=== PATIENT | female | born 1995 | race Caucasian/White ===

== ENCOUNTER 2018-03-13 18:54 | Emergency (ER) | payer MEDICAID, SELFPAY ==
[2018-03-13 18:58] VITALS: BP 121/95; PULSE 129; RESP 20; TEMP 36.7; O2SAT 99
--- NOTE | 2018-03-13 19:05 | ED.GENADUL ---
Disposition Clinical Impression: Abscess of buttock, right Disposition: HOME Condition: Good Instructions: Abscess (ED) Additional Instructions: Home to rest today. May use Tylenol and/or ibuprofen if needed for persistent pain. Return if you develop a fever, shaking chills, or any other concerns. Please follow-up in general surgery clinic for recheck I have referred you to their office. Our case management will work on achieving you an outpatient appointment. May use an inflatable donut to use pressure on the wound. As he discussed may perform dressing change tomorrow with a wick removed in 24-48 hours. Medical Decision Making - Medical Decision Making 23-year-old female presents with right buttock pain and swelling consistent with previous abscess. She is uncomfortable, and in pain with a heart rate of 129. Exam does reveal abscess of the right buttock. Patient consented for incision and drainage. She was anesthetized, prepped and draped in standard sterile fashion, incised with 11 blade with release of approximately 8-10 cc of purulent fluid. A subsequent wound was explored for loculations, packed with iodoform dressing and dressing placed. Patient tolerated the procedure well. She understands home care as well as return precautions. I will refer her to general surgery clinic given the recurrent nature of what is probably a pilonidal cyst. She is stable for discharge home. History of Present Illness - General Chief complaint: Cellulitis Stated complaint: UNKNOWN Time Seen by Provider: 03/13/18 18:55 Source: patient, RN notes reviewed Mode of arrival: ambulatory Limitations: no limitations - History of Present Illness Initial comments: Right buttock abscess: 23-year-old female presents with the gradual onset over 1-1/2 days time of moderate, constant pain in her right buttock towards the midline. She noticed a swollen bump consistent with previous abscess required incision and drainage. She has not had a fever or chills. The discomfort is worse when sitting on it and relieved with lack of pressure. - Related Data Nexplanon 12/01/16 Allergies Allergy/AdvReac Type Severity Reaction Status Date / Time Penicillins Allergy Mild A CHILD Unverified 03/13/18 19:02 Review of Systems Other: 6 systems reviewed, otherwise negative Past Medical History - Past Medical History Pilonidal cyst Surgical history: no surgical history - Social History Alcohol use: none Drug use: marijuana General Exam - General Limitations: no limitations General appearance: alert, in no apparent distress - Head Head exam: Present: atraumatic, normocephalic - Eye Eye exam: Present: PERRL, EOMI - Neck Neck exam: Present: normal inspection, full ROM - Respiratory Respiratory exam: Present: normal lung sounds bilaterally. Absent: respiratory distress - Cardiovascular Cardiovascular Exam: Present: normal rhythm, tachycardia - GI/Abdominal GI/Abdominal exam: Present: soft. Absent: distended, tenderness - Extremities Exam Extremities exam: Present: normal inspection - Back Exam Back exam: Present: other (Buttock: The right buttock has a 1 x 3 cm area of raised abscess it is tender to touch. It is outside of the gluteal cleft but towards the midline of the buttock. Does not track proximally.) - Neurological Exam Neurological exam: Present: alert, oriented X3 - Psychiatric Psychiatric exam: Present: normal affect, normal mood - Skin Skin exam: Present: warm, dry, intact Course Vital Signs - 24 hr 03/13/18 18:58 Temperature 36.7 C Pulse 129 H Respiratory 20 Rate Blood Pressure 121/95 Pulse Oximetry 99 Procedures - Abscess I/D Site: Other (Buttock) Side (if applicable): Right Local Anesthetic: Lidocaine 1% Amount of Anesthesia Used (mL): 2 Technique: Incised with #11 Blade Amount of Fluid: 8 (Purulent) Packing used?: Iodoform
--- NOTE | 2018-03-14 08:20 | PDOC.ERCMPRO ---
Care Management Progress Note 03/14-Dr. Arana requested assistance with a general surgery f/u in 1-2 weeks for buttock abscess. Referral faxed to [facility] this am.
--- NOTE | 2018-03-14 08:21 | CMPROGNOTE_ITS ---
Care Management Progress Note 03/14-Dr. Arana requested assistance with a general surgery f/u in 1-2 weeks for buttock abscess. Referral faxed to [facility] this am.
== END 2018-03-13 19:47 | disposition home or self-care (01) ==
PROVIDERS: Emergency Provider Emergency Medicine; PCP Internal Medicine
DX: L02.31 Cutaneous abscess of buttock (principal)
CPT/HCPCS: 10061

== ENCOUNTER 2018-08-16 17:05 | Emergency (ER) | payer MEDICAID, SELFPAY ==
[2018-08-16 17:16] VITALS: BP 140/78; PULSE 110; RESP 14; TEMP 37.1; O2SAT 97
--- NOTE | 2018-08-16 17:26 | W.ED.GENAD ---
Discharge Plan Disposition Patient Disposition: HOME Condition: Fair Discharge Details Chief Complaint: RespSymp Clinical Impression: URI (upper respiratory infection) Primary Care Provider: Nas Carvalho ED Provider: Erin Laird Home Meds and New Rx's Prescriptions: Continued nexplanon RF: 0 Discharge Instructions Instructions: Upper Respiratory Infection (ED) Additional Instructions: Encourage hydration. Tylenol and/or ibuprofen as needed for discomfort. You may try warm water and honey to help with sore throat. If you develop difficulty breathing, shortness of breath, inability to stay hydrated or other new/worsening symptoms please seek care urgently once again. Referrals: Nas Carvalho MD [Primary Care Provider] - Medical Decision Making Patient 23-year-old female presents today with chief complaint of runny nose, bilateral ear discomfort, congestion and cough. Symptoms began yesterday. Reports the cough is very mild. Denies any fevers or chills. Denies any GI upset, no nausea, vomiting or diarrhea. Reports that she was around a sick relative recently. Patient reports that she has Nexplanon in place. Denies any shortness of breath or difficulty breathing. Has been able to hydrate well. Patient reports that she has had strep throat multiple times with sore throat is not that severe. On exam, patient appears well, no respiratory distress. Posterior oropharynx mildly erythematous but otherwise exam is benign. Lungs are clear in all cameron. Patient is noted to be slightly tachycardic at 110. Primarily concerned that she may have contracted influenza. Flu swab was obtained and was running. Rapid flu negative. Advised likely viral URI. Encouraged hydration. ADvised on OTC and home remedies that may be used for symptomatic management. Discussed new/worsening symptoms and when to seek care urgently once again. Advised f/u with PCP in one week if not improving. All of her questions and concerns were addressed, she is in agreement with this plan. HPI General Mode of arrival: ambulatory. Date/Time Provider Initiated Documentation: 08/16/18 17:26. Limitations to Documentation: no limitations. Information obtained by: patient and family (accompanied by significant other). History of Present Illness 23 year old F presents to the emergency department with the chief complaint of URI, described as mild (denies pain at this time), Patient started experiencing this day(s) (1) and it has been constant. No relieving factors improve symptom(s), No exacerbating factors reported . Patient notes cough; denies chest pain, diaphoresis, fever/chills, headaches, loss of appetite, nausea/vomiting, rash, shortness of breath and weakness. Patient did receive the following treatments prior to arrival, none Related Data Home Medications Medication Instructions Recorded Confirmed Nexplanon 12/01/16 Allergies Allergy/AdvReac Type Severity Reaction Status Date / Time Penicillins Allergy Mild A CHILD Unverified 08/16/18 17:21 General Stated Complaint: RespSymp LIAN: 4 Review of Systems Constitutional Reports as per HPI and Denies headache(s) Eyes Reports as per HPI, Denies eye discharge and Denies irritation ENT Reports otalgia (bilateral ear fullness), Denies headache(s), Reports nasal congestion, Reports nasal discharge, Denies sinus pressure, Reports sore throat and Denies throat swelling Cardiovascular Reports as per HPI, Denies chest pain and Denies dyspnea Respiratory Reports as per HPI, Reports cough, Denies dyspnea, Denies stridor and Denies wheezing Gastrointestinal Reports as per HPI, Denies abdominal pain, Denies change in bowel habits, Denies nausea and Denies vomiting Integumentary/Breasts Reports as per HPI and Denies rash Neurologic Denies headache(s) Allergic/Immunologic Denies throat swelling and Denies wheezing [facility] Medical History Pilonidal cyst with abscess Surgical History Incision & Drainage, Abscess or Hematoma Family History Mother Mental disorder Father No problems noted. Sister Asthma Social History Smoking/Tobacco Use Status: Current every day Exam Const General: cooperative, healthy appearing, comfortable, no acute distress, well developed and well groomed Nutritional Appearance: average body habitus and well nourished Orientation: alert and awake [facility] Head: normal to inspection, normocephalic and atraumatic Ears: hearing grossly normal bilaterally, external ears normal and TM's normal bilaterally General nose exam: external nose normal and nares normal Face and sinus: normal facial exam, sinuses nontender and face symmetric Mouth: oral mucosae normal, lip normal, tongue normal, oropharynx normal and moist mucous membranes Teeth and gingiva: dentition normal Throat: posterior oropharynx normal, tonsils normal and uvula midline Eyes General: appearance normal, both eyes and all related structures Neck Neck: normal visual inspection, full ROM, no lymphadenopathy and no meningeal signs Resp Effort & Inspection: normal respiratory effort, able to speak in complete sentences and no respiratory distress Auscultation: clear to auscultation bilaterally, no rales, no rhonchi and no wheezes Cardio Rate: regular rate Rhythm: regular rhythm Heart Sounds: S1 normal and S2 normal Skin General skin exam: no rashes or lesions noted Neuro General: alert and awake Cognition: normal cognition Speech: speech normal Gait: normal gait Psych Appearance: grossly normal and well kempt Mental Status: mental status grossly normal Speech and Movement: speech and movement normal Course Vital Signs Temperature 37.1 C 08/16/18 17:16 Pulse 110 H 08/16/18 17:16 Respiratory Rate 14 08/16/18 17:16 Blood Pressure 140/78 08/16/18 17:16 Pulse Oximetry 97 08/16/18 17:16 Temperature 37.1 C 08/16/18 17:16 Temperature Source Temporal Artery Scan 08/16/18 17:16 Pulse 110 H 08/16/18 17:16 Respiratory Rate 14 08/16/18 17:16 Respiratory Effort Non-Labored 08/16/18 17:20 Blood Pressure 140/78 08/16/18 17:16 Blood Pressure Position Sitting 08/16/18 17:16 Pulse Oximetry 97 08/16/18 17:16 Oxygen Delivery Method Room Air 08/16/18 17:16 Oxygen Flow Rate 0 08/16/18 17:16 Pain Level 0 08/16/18 17:16 Lab/Test Results Lab/Test Results: 08/16/18 17:22 Nasopharynx Influenza Types A,B Antigen - Pending
--- NOTE | 2018-08-16 17:33 | ED.GENADUL_ITS ---
Discharge Plan Disposition Patient Disposition: HOME Condition: Fair Discharge Details Chief Complaint: RespSymp Clinical Impression: URI (upper respiratory infection) Primary Care Provider: Nas Carvalho ED Provider: Erin Laird Home Meds and New Rx's Prescriptions: Continued nexplanon RF: 0 Discharge Instructions Instructions: Upper Respiratory Infection (ED) Additional Instructions: Encourage hydration. Tylenol and/or ibuprofen as needed for discomfort. You may try warm water and honey to help with sore throat. If you develop difficulty breathing, shortness of breath, inability to stay hydrated or other new/worsening symptoms please seek care urgently once again. Referrals: Nas Carvalho MD [Primary Care Provider] - Medical Decision Making Patient 23-year-old female presents today with chief complaint of runny nose, bilateral ear discomfort, congestion and cough. Symptoms began yesterday. Reports the cough is very mild. Denies any fevers or chills. Denies any GI upset, no nausea, vomiting or diarrhea. Reports that she was around a sick relative recently. Patient reports that she has Nexplanon in place. Denies any shortness of breath or difficulty breathing. Has been able to hydrate well. Patient reports that she has had strep throat multiple times with sore throat is not that severe. On exam, patient appears well, no respiratory distress. Posterior oropharynx mildly erythematous but otherwise exam is benign. Lungs are clear in all cameron. Patient is noted to be slightly tachycardic at 110. Primarily concerned that she may have contracted influenza. Flu swab was obtained and was running. Rapid flu negative. Advised likely viral URI. Encouraged hydration. ADvised on OTC and home remedies that may be used for symptomatic management. Discussed new/worsening symptoms and when to seek care urgently once again. Advised f/u with PCP in one week if not improving. All of her questions and concerns were addressed, she is in agreement with this plan. HPI General Mode of arrival: ambulatory . Date/Time Provider Initiated Documentation: 08/16/18 17:26 . Limitations to Documentation: no limitations . Information obtained by: patient and family (accompanied by significant other) . History of Present Illness 23 year old F presents to the emergency department with the chief complaint of URI, described as mild (denies pain at this time), Patient started experiencing this day(s) (1) and it has been constant. No relieving factors improve symptom(s), No exacerbating factors reported . Patient notes cough; denies chest pain, diaphoresis, fever/chills, headaches, loss of appetite, nausea/vomiting, rash, shortness of breath and weakness. Patient did receive the following treatments prior to arrival, none Related Data Home Medications Medication Instructions Recorded Confirmed Nexplanon 12/01/16 Allergies Allergy/AdvReac Type Severity Reaction Status Date / Time Penicillins Allergy Mild A CHILD Unverified 08/16/18 17:21 General Stated Complaint: RespSymp LIAN: 4 Review of Systems Constitutional Reports as per HPI and Denies headache(s) Eyes Reports as per HPI, Denies eye discharge and Denies irritation ENT Reports otalgia (bilateral ear fullness), Denies headache(s), Reports nasal congestion, Reports nasal discharge, Denies sinus pressure, Reports sore throat and Denies throat swelling Cardiovascular Reports as per HPI, Denies chest pain and Denies dyspnea Respiratory Reports as per HPI, Reports cough, Denies dyspnea, Denies stridor and Denies wheezing Gastrointestinal Reports as per HPI, Denies abdominal pain, Denies change in bowel habits, Denies nausea and Denies vomiting Integumentary/Breasts Reports as per HPI and Denies rash Neurologic Denies headache(s) Allergic/Immunologic Denies throat swelling and Denies wheezing [facility] Medical History Pilonidal cyst with abscess Surgical History Incision & Drainage, Abscess or Hematoma Family History Mother Mental disorder Father No problems noted. Sister Asthma Social History Smoking/Tobacco Use Status: Current every day Exam Const General: cooperative, healthy appearing, comfortable, no acute distress, well developed and well groomed Nutritional Appearance: average body habitus and well nourished Orientation: alert and awake [facility] Head: normal to inspection, normocephalic and atraumatic Ears: hearing grossly normal bilaterally, external ears normal and TM's normal bilaterally General nose exam: external nose normal and nares normal Face and sinus: normal facial exam, sinuses nontender and face symmetric Mouth: oral mucosae normal, lip normal, tongue normal, oropharynx normal and moist mucous membranes Teeth and gingiva: dentition normal Throat: posterior oropharynx normal, tonsils normal and uvula midline Eyes General: appearance normal, both eyes and all related structures Neck Neck: normal visual inspection, full ROM, no lymphadenopathy and no meningeal signs Resp Effort & Inspection: normal respiratory effort, able to speak in complete sentences and no respiratory distress Auscultation: clear to auscultation bilaterally, no rales, no rhonchi and no wheezes Cardio Rate: regular rate Rhythm: regular rhythm Heart Sounds: S1 normal and S2 normal Skin General skin exam: no rashes or lesions noted Neuro General: alert and awake Cognition: normal cognition Speech: speech normal Gait: normal gait Psych Appearance: grossly normal and well kempt Mental Status: mental status grossly normal Speech and Movement: speech and movement normal Course Vital Signs Temperature 37.1 C 08/16/18 17:16 Pulse 110 H 08/16/18 17:16 Respiratory Rate 14 08/16/18 17:16 Blood Pressure 140/78 08/16/18 17:16 Pulse Oximetry 97 08/16/18 17:16 Temperature 37.1 C 08/16/18 17:16 Temperature Source Temporal Artery Scan 08/16/18 17:16 Pulse 110 H 08/16/18 17:16 Respiratory Rate 14 08/16/18 17:16 Respiratory Effort Non-Labored 08/16/18 17:20 Blood Pressure 140/78 08/16/18 17:16 Blood Pressure Position Sitting 08/16/18 17:16 Pulse Oximetry 97 08/16/18 17:16 Oxygen Delivery Method Room Air 08/16/18 17:16 Oxygen Flow Rate 0 08/16/18 17:16 Pain Level 0 08/16/18 17:16 Lab/Test Results Lab/Test Results: 08/16/18 17:22 Nasopharynx Influenza Types A,B Antigen - Pending
== END 2018-08-16 18:30 | disposition home or self-care (01) ==
PROVIDERS: Emergency Provider Physician Assistant; PCP Internal Medicine
DX: J06.9 Acute upper respiratory infection, unspecified (principal)
CPT/HCPCS: 87449; 99282

== ENCOUNTER 2018-12-31 12:54 | Emergency (ER) | payer MEDICAID, SELFPAY ==
[2018-12-31 13:04] VITALS: BP 146/75; PULSE 95; RESP 15; TEMP 36.6; O2SAT 99
--- NOTE | 2018-12-31 14:00 | DI.RAD_ITS ---
SYMPTOMS/DIAGNOSIS: STUCK IN DOOR, NAIL AVULSION LEFT RING FINGER: Three views. There is does appear to be disruption of the cortex in the terminal tuft of the distal phalanx of the left ring finger consistent with a nondisplaced fracture. No other fracture is seen. No dislocation is present. There is soft tissue swelling in the terminal tuft. IMPRESSION: Findings suggestive of a nondisplaced fracture involving the terminal tuft of the left ring finger.
[2018-12-31] MEDS: Ibuprofen 800 MG TAB (14:17)
[2018-12-31] MEDS: Acetaminophen 500 MG TAB 1000 MG (14:17)
--- NOTE | 2018-12-31 14:29 | DI.VRAD_ITS ---
EXAM: XR Left Finger(s) EXAM DATE/TIME: 12/31/2018 1:56 PM CLINICAL HISTORY: 23 years old, female; Pain; Finger(s); Patient HX: Crushing injury to left ring finger. TECHNIQUE: Imaging protocol: XR Left fingers. Views: Minimum 2 views. COMPARISON: No relevant prior studies available. FINDINGS: Bones/joints: Lucencies in the distal aspect of the distal phalanx of the ring finger consistent with subtle tuft fracture. Soft tissues: Soft tissue swelling of the finger. IMPRESSION: 1. Lucencies in the distal aspect of the distal phalanx of the ring finger consistent with subtle tuft fracture. 2. Soft tissue swelling of the finger. Dictated and Authenticated by: Osiris Raza MD. Ordering:KARYN Pagan MD
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
[2018-12-31] MEDS: Cephalexin 500 MG CAP PO (14:55)
== END 2018-12-31 15:22 | disposition home or self-care (01) ==
PROVIDERS: Emergency Provider Student in an Organized Health Care Education/Training Program; PCP Internal Medicine
DX: S69.92XA Unspecified injury of left wrist, hand and finger(s), initial encounter (principal); S62.635A Displaced fracture of distal phalanx of left ring finger, initial encounter for closed fracture; S61.315A Laceration without foreign body of left ring finger with damage to nail, initial encounter; W23.0XXA Caught, crushed, jammed, or pinched between moving objects, initial encounter
CPT/HCPCS: 64450; 99283; 73140

== ENCOUNTER 2019-06-27 22:36 | Emergency (ER) | payer MEDICAID, SELFPAY ==
[2019-06-27 22:51] VITALS: BP 134/77; PULSE 119; RESP 20; TEMP 37.2; O2SAT 100
--- NOTE | 2019-06-27 22:53 | ED.GENADUL_ITS ---
Discharge Plan Disposition Patient Disposition: HOME Condition: Good Discharge Details Chief Complaint: Abd Prob Clinical Impression: Lower abdominal pain Primary Care Provider: Nas Carvalho ED Provider: Oniel Garcia Meds and New Rx's Prescriptions: Continued nexplanon RF: 0 Discharge Instructions Instructions: Abdominal Pain (ED) Additional Instructions: You may try ibuprofen for the discomfort. Contact [facility] in the morning for follow-up appointment. Return to ED if you develop fever, worsening pain, vomiting, other concerns or problems. Referrals: [facility] [place] [place] [Provider Group] Medical Decision Making Patient appears well. Her tachycardia is likely related to anxiety as opposed to illness. She is afebrile. She has no CVAT. Her abdomen is completely benign to palpation. There is no tenderness anywhere. Urine test is negative. Urinalysis is pending. Discussed pelvic exam and cultures which she does not feel as necessary. There is no discharge. She is monogamous. She has no tenderness in the suprapubic/pelvic area. Urinalysis positive for blood and leukocyte esterase. Micro with 3-5 red cells, 0-2 white cells, moderate epithelials. No evidence of UTI. Do not suspect kidney stone. Again offered pelvic exam but patient would like to follow-up with [facility]. Return to ED if she gets worsening pain, vomiting, fever. Lab Data Lab results reviewed: Yes I reviewed the patient's lab results. HPI General Mode of arrival: ambulatory . Date/Time Provider Initiated Documentation: 06/27/19 22:49 . Limitations to Documentation: no limitations . Information obtained by: patient and RN notes reviewed . HPI Narrative: Patient presents to ED with lower abdominal discomfort for the last few days. Now also having some lower back discomfort. She has nausea but denies any vomiting or diarrhea. She is having normal bowel movements. She has urinary frequency but denies dysuria, hematuria, urgency. She denies any vaginal bleeding or discharge. She has Nexplanon in. She is monogamous with the same man for the last 6 years. She has not really been eating well but has been drinking without difficulty. She denies fever or chills. Related Data Home Medications Medication Instructions Recorded Confirmed Nexplanon 12/01/16 01/09/19 Allergies Allergy/AdvReac Type Severity Reaction Status Date / Time Penicillins Allergy Mild A CHILD Unverified 01/09/19 09:53 General LIAN: 3 Review of Systems Narrative: As documented in HPI otherwise negative as below. Const: no fever, chills, weakness Resp: no cough, SOB, pleuritic pain CV: no CP, diaphoresis, edema, syncope GI: abdominal pain, nausea; no vomiting, diarrhea Neuro: no headache, numbness, focal weakness, confusion PFSH Surgical History Incision & Drainage, Abscess or Hematoma Family History Mother Mental disorder Father No problems noted. Sister Asthma Social History Smoking/Tobacco Use Status: Current every day Tobacco Type: cigarettes Drug use: Occasionally Substance use type: marijuana Do you feel safe at home: Yes Do you feel safe in your relationship?: Yes Exam Narrative Exam Narrative: Vitals: Afebrile. Tachycardic but anxious otherwise normal vitals and normal room air pulse ox. Const: WDWN female in NAD. HEENT: NC/AT. Normal facial exam. Eyes: Normal conjunctiva and sclera. Neck: Supple. Trachea midline. Lungs: Normal respiratory effort. Lungs are clear. Cor: RRR without murmur/gallop. Good radial pulses. Tachy. GI: Soft. NT/ND. No suprapubic/pelvic tenderness. No guarding or rebound. Back: No CVAT. Neuro: A+O x 3. CN grossly in tact. Good strength and no focal deficit. Ext: No C/C/E. Skin: Warm and dry without rash.
[2019-06-27 23:24] LABS: Bilirubin Negative (Negative); Blood Moderate (Negative); Clarity Clear (Clear); Glucose Negative (Negative); Ketones Negative (Negative); Leukocyte Esterase Negative (Negative); Nitrite Negative (Negative); Urobilinogen 0.2 EU/dL (Up TO 0.2)
[2019-06-27 23:29] LABS: Bacteria Moderate HPF (Negative); C & S Indicated? No/Sq. Contamination; Casts Negative LPF (Negative); Crystals Negative HPF (Negative); Epithelial Cells Moderate HPF (Negative); Mucus Negative (Negative); WBC 0-2 HPF (0-5)
[2019-06-28 00:04] VITALS: BP 129/76; PULSE 94; RESP 16; O2SAT 100
== END 2019-06-28 00:25 | disposition home or self-care (01) ==
LOC: ER 06-28 00:07
PROVIDERS: Emergency Provider Emergency Medicine; PCP Internal Medicine
DX: R10.30 Lower abdominal pain, unspecified (principal); M54.5 Low back pain; R11.0 Nausea
CPT/HCPCS: 81025; 99282; 81003; 81015

== ENCOUNTER 2019-06-28 16:37 | Outpatient (REF) | payer MEDICAID, SELFPAY ==
--- NOTE | 2019-06-28 16:20 | PAPFT_PTH ---
PATIENT: Janet Mccann LOC: [facility] U#:[id number] AGE/SX: 24/F ROOM: RE06/28/[address]: Sawyer Coffey MD : 1995 BED: DIS: 06/28/2019 SPEC #: [id number] RECD: 06/28/19 17:32 STATUS: SAKSHI REIan #: [id number] MICHELLE: 06/28/19 16:[address]: Sawyer Coffey DEPT: [facility] Cytology RECD BY: Magy Smith ENTERED: 06/28/19 17:33 SP TYPE: PAPFT OTHR DR: Nas Carvalho Tissues: 1 - CX/ENDOCX FOR PAP SMEARS Procedures: PAP THIN PREP/[facility] Screening Comments: [id number]
== END 2019-06-28 16:57 ==
LOC: LBN 16:37
PROVIDERS: PCP Internal Medicine; Visit Provider Obstetrics & Gynecology
DX: Z12.4 Encounter for screening for malignant neoplasm of cervix (principal)
CPT/HCPCS: 88142

== ENCOUNTER 2019-07-27 18:05 | Emergency (ER) | payer MEDICAID, SELFPAY ==
[2019-07-27] MEDS: Erythromycin Ophth Oint 3.5 GM TUBE (18:18)
[2019-07-27] MEDS: Tetracaine 0.5% 4 ML BTL (18:18)
[2019-07-27] MEDS: Fluorescein STRIPS 100/BOX 1 MG (18:18)
--- NOTE | 2019-07-27 18:18 | W.ED.GENAD ---
Discharge Plan Disposition Patient Disposition: HOME Condition: Good Discharge Details Chief Complaint: EyeProblem Clinical Impression: Abrasion, corneal Primary Care Provider: Nas Carvalho ED Provider: Ej Everett Home Meds and New Rx's Prescriptions: No Action nexplanon RF: 0 Discharge Instructions Instructions: Corneal Abrasion (ED) Additional Instructions: You have an abrasion of your cornea. The corneal epithelial cells healed extremely quickly. I suspect that this will all be healed in the next 24 to 48 hours. Please follow-up closely with the clay thrower that we discussed. Please apply the ointment to the affected left eye in a thin ribbon 3 times daily. If you notice any worsening of your symptoms, or any new symptoms such as vomiting, diarrhea, fever, chills, shortness of breath, chest pain, numbness, weakness, or fainting , please return immediately to the emergency department for reevaluation. Please follow up with your primary care provider as soon as possible for reassessment and reevaluation. As always, it was a pleasure participating in your medical care today. Referrals: [facility] [Outside] Nas Carvalho MD [Primary Care Provider] - Medical Decision Making This is a pleasant 24-year-old female who presents today for evaluation of left eye pain after getting hit in the eye with her child's fingernail. She does not wear contact lenses, she has her immunizations up-to-date. Physical exam and fluorescein stain demonstrate evidence of a very small corneal abrasion with no evidence of foreign body or abnormality underneath her lids bilateral for upper and lower, there is no evidence of globe perforation, no other evidence of abnormality or trauma. Patient had complete resolution of her symptoms with tetracaine and erythromycin ointment. Erythromycin ointment will be given as a soothing method. No evidence of significant conjunctivitis at this time. Recommend follow-up with Dr. Coffman. I have extensively reviewed the treatment plan and discharge instructions with the patient. I have addressed all patient concerns at this time. The patient was made aware of what symptoms to monitor for that would warrant a return to the emergency department. Discussed the plan with the patient, they demonstrate verbal understanding and agreement with our assessment and plan at this time. HPI General Date/Time Provider Initiated Documentation: 07/27/19 18:08. HPI Narrative: This is a very pleasant 24-year-old female whose immunizations are up-to-date who presents today for pain in her left eye. She states that last night she was clipped in the eye by her son's fingernail and has had mild pain since then. Pain is improved by nothing, made worse with bright light. Feels like there is a foreign body in there. Patient denies any other complaints. She does not wear contact lenses. Related Data Home Medications Medication Instructions Recorded Confirmed Nexplanon 12/01/16 06/28/19 Allergies Allergy/AdvReac Type Severity Reaction Status Date / Time Penicillins Allergy Mild A CHILD Unverified 06/28/19 15:53 General LIAN: 3 Review of Systems All systems reviewed & are unremarkable except as noted in HPI and below PFSH Family History Mother Mental disorder Father No problems noted. Sister Asthma Social History Smoking/Tobacco Use Status: Current every day Tobacco Type: cigarettes Drug use: Occasionally Substance use type: marijuana Do you feel safe at home: Yes Do you feel safe in your relationship?: Yes Exam Narrative Exam Narrative: 1.Const: Well-nourished, Well-developed, appearing stated age 2.Eyes: PERRL, no conjunctival injection, and symmetrical lids. Left eye: EOMI, PERRL, Peripheral vision intact. No nystagmus. No clinical signs of septal/orbital cellulitis, no redness around the eye, no proptosis. No hyphema, no signs of trauma around the eye, no periorbital emphysema. No sluggishness of the pupil. No ophthalmoplegia. No afferent pupillary defect. Fluorescein exam is positive for corneal abrasion at the noon position just above the pupil. negative Jaci sign. Eversion of the lids demonstrates no evidence of foreign body. Normal visual acuity. 3.ENT: Atraumatic external nose and ears. Moist MM. Neck: Symmetric, trachea midline, No thyromegaly. 4.CVS: +S1/S2, No murmurs or gallops. Peripheral pulses 2+ and equal in all extremities. Brisk capillary refill in all extremities. 5.RESP: Unlabored respiratory effort. Clear to auscultation bilaterally. No wheezes rales or rhonchi 6.GI: Soft, Nontender/Nondistended, No hepatosplenomegaly. No guarding or rebound. 7.MSK: Normocephalic/Atraumatic, Extremities w/o deformity or ttp No cyanosis or clubbing, Normal movement of all extremities 8.Skin: Warm, Dry. No rashes or lesions. 9.Neuro: battery checker II-XII grossly intact. Sensation grossly intact, no focal neurologic deficits. 10.Psych: (AAO) x3. Appropriate mood and affect
[2019-07-27 18:19] VITALS: BP 123/67; PULSE 78; RESP 17; TEMP 36.8; O2SAT 98
--- NOTE | 2019-07-28 08:48 | NUR.NOTE ---
Referral and note faxed to [facility].Nursing Note:
== END 2019-07-27 18:25 | disposition home or self-care (01) ==
PROVIDERS: Emergency Provider Student in an Organized Health Care Education/Training Program; PCP Internal Medicine
DX: S05.02XA Injury of conjunctiva and corneal abrasion without foreign body, left eye, initial encounter (principal); W26.8XXA Contact with other sharp object(s), not elsewhere classified, initial encounter
CPT/HCPCS: 99283

== ENCOUNTER 2023-01-05 15:48 | Emergency (ER) | payer MEDICAID, SELFPAY ==
[2023-01-05 15:54] VITALS: BP 138/94; PULSE 113; RESP 15; TEMP 36.7; O2SAT 97
--- NOTE | 2023-01-05 16:09 | ED.GENADUL_ITS ---
Discharge Plan Disposition Patient Disposition: Home Condition: Stable Discharge Details Clinical Impression: Strep pharyngitis Primary Care Provider: Nas Carvalho ED Provider: Manish Thompson Home Meds and New Rx's Prescriptions: New azithromycin 500 mg tablet 500 mg PO DAILY 4 Days Qty: 4 0RF Continued nexplanon Discharge Instructions Instructions: Strep Throat (ED) Additional Instructions: Please take medications as prescribed. You may also take 600mg of motrin as need for fever or pain. return for any worsening of systems or follow up with primary care provider if not improving Stand Alone Forms: Work Release Referrals: Nas Carvalho MD [Primary Care Provider] - Medical Decision Making Patient presenting to the emergency department for chief complaint of fever and sore throat. Patient reports symptoms started yesterday and having increase of symptoms with worsening sore throat. Exam consistent with Pharyngitis. no signs of deep neck space infection ( Retropharyngeal abscess, Sky's angina, Parapharyngeal space infection, Peritonsillar Abscess ([employer])) or Epiglottitis. Pt non toxic and stable. Strep testing was performed and ibuprofen given pending results Strep test did show positive result and given patient's penicillin allergy patient was placed on azithromycin. Patient was given first dose here and discussed return and follow-up precautions. After discussion of diagnosis and plan of care patient has no further needs, questions, or concerns and states clear understanding to return to the emergency department for any worsening symptoms. This documentation was generated using [employer] dictation system, please disregard any oddities of phrase or misspellings. Lab Data Lab results reviewed: Yes I reviewed the patient's lab results. HPI General Mode of arrival: ambulatory . Date/Time Provider Initiated Documentation: 01/05/23 15:49 . Limitations to Documentation: no limitations . Information obtained by: patient and RN notes reviewed . History of Present Illness 27 year old F presents to the emergency department with the chief complaint of Sore throat, described as moderate, with intensity rated at 7. Quality is described as aching, Patient started experiencing this day(s) (1) and it has been constant. No relieving factors improve symptom(s), No exacerbating factors reported . Patient notes fever/chills and headaches. Patient did receive the following treatments prior to arrival, other (Acetaminophen) Related Data Home Medications Medication Instructions Recorded Confirmed Nexplanon 12/01/16 06/28/19 azithromycin 500 mg tablet 500 mg PO DAILY 4 days #4 tabs 01/05/23 Previous Rx's Medication Instructions Recorded azithromycin 500 mg tablet 500 mg PO DAILY 4 days #4 tabs 01/05/23 Allergies Allergy/AdvReac Type Severity Reaction Status Date / Time Penicillins Allergy Mild A CHILD Unverified 01/05/23 15:59 General Stated Complaint: Sorethroat LIAN: 4 Review of Systems Constitutional Constitutional: Reports chills, Reports fatigue, Reports fever(s), Reports headache(s), Reports malaise and Reports poor appetite ENT Ears, Nose, Mouth, and Throat: Reports as per HPI, Reports headache(s), Denies nasal congestion, Denies neck pain, Reports odynophagia, Denies sinus pain, Denies sinus pressure, Reports sore throat, Denies throat swelling and Denies tongue swelling Cardiovascular Cardiovascular: Denies chest pain and Denies dyspnea Respiratory Respiratory: Denies cough and Denies dyspnea Gastrointestinal Gastrointestinal: Reports system reviewed and no additional complaints, except as documented and Reports odynophagia Musculoskeletal Musculoskeletal: Denies neck pain Integumentary/Breasts Skin/Breast: Reports system reviewed and no additional complaints, except as documented Neurologic Neurologic: Reports headache(s) Endocrine Endocrine: Reports fatigue Allergic/Immunologic Allergic/Immunologic: Denies throat swelling and Denies tongue swelling PFSH All Active Problems (Updated 01/05/23 @ 16:41 by Manish Thompson NP) Strep pharyngitis (Acute) Abdominal pain complicating (Acute) Injury of nail (Acute) Left ring finger Question of tuft fracture DOI: 12/31/2018 care and examination of lactating mother (Acute) Status post vaginal delivery (Acute) endometritis (Acute) Acute tonsillitis (Acute) Surgical History Incision & Drainage, Abscess or Hematoma Family History Mother Mental disorder Father No problems noted. Sister Asthma Social History Smoking/Tobacco Use Status: Current every day Tobacco Type: cigarettes Smoking risk assessment performed?: Yes Alcohol Intake: current Alcohol Intake frequency: holidays/special occasions only Drug use: Occasionally Substance use type: marijuana Do you feel safe at home: Yes Do you feel safe in your relationship?: Yes Exam Const General: cooperative, comfortable and no acute distress Orientation: alert and awake [facility] Head: normal to inspection, normocephalic and atraumatic Ears: hearing grossly normal bilaterally and TM's normal bilaterally General nose exam: external nose normal Face and sinus: no erythema Mouth: oral mucosae normal, lip normal, tongue normal, no drooling and no trismus Throat: uvula midline, abnormal tonsil bilaterally erythema, exudates and hypertrophy, posterior oropharynx abnormal erythema and exudates, uvula not displaced and no uvular edema Neck Neck: normal visual inspection, full ROM, no meningeal signs, trachea midline, supple and lymphadenopathy bilateral anterior cervical Resp Effort & Inspection: normal respiratory effort and able to speak in complete sentences Auscultation: clear to auscultation bilaterally Cardio Rate: regular rate Rhythm: regular rhythm Heart Sounds: S1 normal, S2 normal, normal S1 and S2, no click, no gallops, no murmurs and no rubs Skin General skin exam: no rashes or lesions noted and dry skin (warm) Neuro General: patient alert, patient awake, patient oriented x3, gait normal and moves all extremities Cognition: normal cognition Speech: speech normal Course Vital Signs Vital signs: Vital Signs Temperature 36.7 C 01/05/23 15:54 Pulse 113 H 01/05/23 15:54 Respiratory Rate 15 01/05/23 15:54 Blood Pressure 138/94 H 01/05/23 15:54 Pulse Oximetry 97 01/05/23 15:54 Temperature 36.7 C 01/05/23 15:54 Temperature Source Temporal Artery Scan 01/05/23 15:54 Pulse 113 H 01/05/23 15:54 Respiratory Rate 15 01/05/23 15:54 Respiratory Effort Normal 01/05/23 15:58 Blood Pressure 138/94 H 01/05/23 15:54 Blood Pressure Position Sitting 01/05/23 15:54 Pulse Oximetry 97 01/05/23 15:54 Oxygen Delivery Method Room Air 01/05/23 15:54 Oxygen Flow Rate 0 01/05/23 15:54 Pain Level 7 01/05/23 15:54 PAWSS Have you Been Recently Intoxicated or Drunk Within the Last 30 days?: No Have you Ever Experienced Previous Episodes of Alcohol Withdrawal?: No Have you ever Experienced Withdrawal Seizures?: No Have you ever Experienced Delirium Tremens(DT)s?: No Have you ever undergone Alcohol Rehabilitation Treatment (i.e, inpt ot o utpatient treatment programs)?: No Have you ever Experienced Blackouts?: No Have you ever Combined Alcohol with other Downers within the last 90 days?: No Have you ever Combined Alcohol with any other Substance of Abuse during the last 90 days?: No Result: 0
[2023-01-05] MEDS: Ibuprofen 600 MG TAB PO (16:14)
[2023-01-05] MEDS: Azithromycin 250 MG TAB 500 MG PO (16:53)
== END 2023-01-05 16:54 | disposition home or self-care (01) ==
PROVIDERS: Emergency Provider Nurse Practitioner Family; PCP Internal Medicine
DX: J02.0 Streptococcal pharyngitis (principal)
CPT/HCPCS: 87880; 99283

== ENCOUNTER 2023-06-30 19:47 | Emergency (ER) | payer MEDICAID, SELFPAY ==
[2023-06-30 19:52] VITALS: BP 156/83; PULSE 99; RESP 16; TEMP 37.2; O2SAT 100
[2023-06-30 20:02] VITALS: BP 156/83; PULSE 99; RESP 16; TEMP 37.2; O2SAT 100
--- NOTE | 2023-06-30 20:09 | ED.GENADUL_ITS ---
Discharge Plan Disposition Patient Disposition: Home Condition: Stable Discharge Details Clinical Impression: Dental abscess Primary Care Provider: [facility] ED Provider: Ruth Meehan Home Meds and New Rx's Prescriptions: New clindamycin HCl 150 mg capsule 450 mg PO TID 7 Days Qty: 63 0RF Rx Instructions: Take 3 capsules by mouth three times daily No Action nexplanon Patient Comments: has had it in 6 years Discharge Instructions Instructions: Dental Abscess (ED) Additional Instructions: Follow up with a dentist. Please take Tylenol or Ibuprofen with food every 4-6 hours as needed for pain and swelling. Continue to use a topical HurriCaine gel up to 3 times daily. Rinse out your mouth after eating or drinking anything. Follow up with primary care provider in 3-5 days. Return to ED sooner if any worsening or concerns. Increase oral fluids. Practice good oral hygiene. [place] teeth twice a day. Discharge Data Discharge Date/Time-TO BE ENTERED AT DEPARTURE: 06/30/23 20:40 Medical Decision Making 28 year old female presents to the ER with a chief complaint or right lower jaw swelling and tooth pain. This began last night. Has taken Tylenol [employer]. Denies any fever, or trouble swallowing. She has been getting some drainage with swishing with salt water at home. Attempted drainage of right lower dental abscess, dental block also placed. Patient reports relief after anesthetic. Given Clindamycin and discussed home care and dental follow up. Verbalized understanding. HPI General Mode of arrival: ambulatory . Date/Time Provider Initiated Documentation: 06/30/23 19:57 . Limitations to Documentation: no limitations . Information obtained by: patient, RN notes reviewed and old records reviewed . HPI Narrative: 28 year old female presents to the ER with a chief complaint or right lower jaw swelling and tooth pain. This began last night. Has taken Tylenol [employer]. Denies any fever, or trouble swallowing. She has been getting some drainage with swishing with salt water at home. Related Data Home Medications Medication Instructions Recorded Confirmed Nexplanon 12/01/16 06/28/19 clindamycin HCl 150 mg capsule 450 mg (3 x 150 mg) PO TID Dental 06/30/23 abscess 7 days #63 caps Previous Rx's Medication Instructions Recorded clindamycin HCl 150 mg capsule 450 mg (3 x 150 mg) PO TID Dental 06/30/23 abscess 7 days #63 caps Allergies Allergy/AdvReac Type Severity Reaction Status Date / Time Penicillins Allergy Mild A CHILD Unverified 06/30/23 19:55 General Stated Complaint: DentalOral LIAN: 4 Review of Systems All systems reviewed & are unremarkable except as noted in HPI and below ENT Ears, Nose, Mouth, and Throat: Reports dental pain PFS All Active Problems (Updated 06/30/23 @ 20:36 by Ruth Meehan NP) Dental abscess (Acute) Abdominal pain complicating (Acute) Injury of nail (Acute) Left ring finger Question of tuft fracture DOI: 12/31/2018 care and examination of lactating mother (Acute) Status post vaginal delivery (Acute) endometritis (Acute) Acute tonsillitis (Acute) Surgical History Incision & Drainage, Abscess or Hematoma Family History Mother Mental disorder Father No problems noted. Sister Asthma Social History Smoking/Tobacco Use Status: Current every day Tobacco Type: cigarettes and e- cigarettes Smoking risk assessment performed?: Yes Alcohol Intake: current Alcohol Intake frequency: holidays/special occasions only Drug use: Occasionally Substance use type: marijuana Do you feel safe at home: Yes Do you feel safe in your relationship?: Yes Exam [facility] Face images: 2 1. Facial swelling Throat image: 2 1. Swelling and fluctuance 2. Broken tooth 3. Course Vital Signs Vital signs: Vital Signs Temperature 37.2 C 06/30/23 19:52 Pulse 99 H 06/30/23 19:52 Respiratory Rate 16 06/30/23 19:52 Blood Pressure 156/83 H 06/30/23 19:52 Pulse Oximetry 100 06/30/23 19:52 Temperature 37.2 C 06/30/23 20:02 Temperature Source Temporal Artery Scan 06/30/23 20:02 Pulse 99 H 06/30/23 20:02 Respiratory Rate 16 06/30/23 20:02 Blood Pressure 156/83 H 06/30/23 20:02 Blood Pressure Position Sitting 06/30/23 20:02 Pulse Oximetry 100 06/30/23 20:02 Oxygen Delivery Method Room Air 06/30/23 20:02 Oxygen Flow Rate 0 06/30/23 19:52 Pain Level 5 06/30/23 20:02 Procedures Abscess I/D Site: Face (Dental) Side (if applicable): Right Local Anesthetic: Lidocaine 1% and With Epi Amount of anesthesia used (mL): 1 Technique: Incised with #11 Blade Amount of fluid expressed (mL): 3 Irrigation: No Packing used?: None Complications: Pain
[2023-06-30] MEDS: Benzocaine 20% Gel 30 GM JAR MM (20:11)
[2023-06-30] MEDS: Clindamycin 150 MG CAP 450 MG PO (20:24)
[2023-06-30] MEDS: Clindamycin 150 MG CAP, 12 CAPS/BTL 450 MG PO (20:40)
== END 2023-06-30 20:40 | disposition home or self-care (01) ==
PROVIDERS: Emergency Provider Registered Nurse Emergency
DX: R68.84 Jaw pain (principal); K04.7 Periapical abscess without sinus
CPT/HCPCS: 99283

== ENCOUNTER 2023-10-05 13:02 | Outpatient (REF) | payer MEDICAID, SELFPAY ==
[2023-10-05 14:22] LABS: Source Nasopharynx
[2023-10-05 15:30] LABS: COVID-19 PCR Negative (Negative)
== END 2023-10-05 13:03 | disposition home or self-care (01) ==
LOC: NCHCN 13:02
PROVIDERS: Referring Provider Physician Assistant Medical; Visit Provider Physician Assistant Medical
DX: J02.9 Acute pharyngitis, unspecified (principal)
CPT/HCPCS: 87635; 87070